=== PATIENT | female | born 1970 | race Caucasian/White ===

== ENCOUNTER 2017-07-30 05:51 | Day surgery (SDC) | payer BC ==
[~2017-07-30] VITALS: Ht 160 cm; Wt 56.6 kg
[~2017-07-30 05:51] MED LIST: ASCO100019 PO; ATOR20TA9 PO; CALC1CAP8 PO; ESTR1PAT66 TD; PARO30TA45 PO
[2017-07-30] MEDS ORDERED: LACTATED RINGERS 1,000 ML IV SCH (06:17)
[2017-07-30 06:18] VITALS: BP 142/90
[2017-07-30] MEDS ORDERED: LIDOCAINE 1%, 2ML SQ PRN (06:30)
[2017-07-30] MEDS ORDERED: MIDAZOLAM 1 MG/ML, 2ML ONE (07:04)
[2017-07-30] MEDS ORDERED: FENTANYL PF 100 MCG/2ML ONE (07:04)
[2017-07-30] MEDS ORDERED: PROPOFOL 10 MG/ML, 20ML ONE (07:05)
[2017-07-30] MEDS ORDERED: LIDOCAINE-MPF 2% ,5ML ONE (07:05)
[2017-07-30] MEDS ORDERED: PHENYLEPHRINE 10 MG/ML ONE (07:06)
[2017-07-30] MEDS ORDERED: SCOPOLAMINE 1MG PATCH TD ONE (07:19)
[2017-07-30] MEDS ORDERED: KETOROLAC 30 MG/1 ML ONE (07:48)
[2017-07-30] MEDS ORDERED: ONDANSETRON 2MG/ML, 2ML ONE ×2 (07:48)
[2017-07-30] MEDS ORDERED: ONDANSETRON 2MG/ML, 2ML IVPush PRN (08:00)
[2017-07-30] MEDS ORDERED: HYDROmorphone 1 MG/ML, 1ML IV PRN (08:00)
[2017-07-30] MEDS ORDERED: hydrALAzine 20 MG/ML, 1ML IV PRN (08:00)
[2017-07-30] MEDS ORDERED: FENTANYL PF 100 MCG/2ML IV PRN (08:00)
[2017-07-30] MEDS ORDERED: PROMETHAZINE 25 MG/ML, 1ML IV PRN (08:00)
[2017-07-30] MEDS ORDERED: OXYcodone 5 MG/5 ML ORAL.SOL UDC PO PRN (08:00)
[2017-07-30] MEDS ORDERED: LABETALOL 5MG/ML, 20ML IV PRN (08:00)
[2017-07-30] MEDS ORDERED: ACETAMINOPHEN 325 MG TABLET PO PRN (08:00)
[2017-07-30] MEDS ORDERED: MEPERIDINE/PF 25MG/0.5ML IVPush PRN (08:00)
[2017-07-30] MEDS ORDERED: HYDROmorphone 1 MG/ML, 1ML ONE (08:27)
[2017-07-30] MEDS ORDERED: OXYcodone/APAP 5/325MG TABLET ONE (11:45)
[2017-07-30] MEDS ORDERED: OXYcodone/APAP 5/325MG TABLET PO PRN (12:00)
[2017-07-30] MEDS ORDERED: DEXAMETHASONE 4 MG/ML, 1ML ONE (16:32)
[2017-07-30] MEDS ORDERED: CEFAZOLIN 1,000 MG ONE (16:32)
== END 2017-07-30 12:05 ==
LOC: OUT 05:51
PROVIDERS: ATTEND Student in an Organized Health Care Education/Training Program
DX: N20.0 Calculus of kidney (principal); Z87.442 Personal history of urinary calculi; Z98.890 Other specified postprocedural states; Z88.1 Allergy status to other antibiotic agents
CPT/HCPCS: 52332; 52352; 52356; 74000; 76001; 82360; 88300; C1726; C1758; C1769; C2617; J0690; J1100; J1170; J1885; J2250; J2370; J2405; J2704; J3010; J3490; J7120

== ENCOUNTER 2017-08-06 15:05 | Emergency (ER) | payer BC ==
[~2017-08-06] VITALS: Ht 160 cm; Wt 56.4 kg
[2017-08-06] MEDS ORDERED: ONDANSETRON 2MG/ML, 2ML ONE (15:21)
[2017-08-06] MEDS ORDERED: morphine SULFATE 10 MG/ML, 1ML ONE (15:21)
[2017-08-06] MEDS ORDERED: SODIUM CHLORIDE 0.9% 1,000ML IVBOLUS ONE (15:30)
[2017-08-06] MEDS ORDERED: ONDANSETRON 2MG/ML, 2ML IVPush ONE (15:30)
[2017-08-06] MEDS ORDERED: SODIUM CHLORIDE FLUSH 10ML SYR IVF ONE (15:30)
[2017-08-06] MEDS ORDERED: MORPHINE SULFATE 4 MG/ML, 1ML IVPush PRN (15:30)
[2017-08-06 15:38] LABS: HEMATOCRIT 44.3 % (34.6-47.8); HEMOGLOBIN 14.9 g/dL (11.7-16.4); WHITE BLOOD COUNT 5.4 x10^3/uL (3.4-10)
[2017-08-06 15:48] LABS: BLOOD UREA NITROGEN 6 mg/dL (7-18)
[2017-08-06 16:09] LABS: PATH.CAST-FLAG NOT PRESENT; SPERM-FLAG NOT PRESENT; SRC-FLAG NOT PRESENT; XTAL-FLAG NOT PRESENT; YLC-FLAG NOT PRESENT
[2017-08-06] MEDS ORDERED: OPIUM/BELLADONNA SUPP.RECT 16.2-60 MG PR STA (17:05)
[2017-08-06 18:40] VITALS: BP 145/83
== END 2017-08-06 18:43 | disposition home or self-care (01) ==
LOC: ED 17:10
DX: N30.00 Acute cystitis without hematuria (principal); R31.9 Hematuria, unspecified; N34.1 Nonspecific urethritis
CPT/HCPCS: 36415; 76770; 80048; 81001; 82040; 83605; 85025; 87086; 96361; 96374; 96375; 99285; J2405; J7030